=== PATIENT | female | born 1995 | race Caucasian/White ===

== ENCOUNTER 2021-04-08 20:50 | Emergency (ER) | payer BC, SELFPAY ==
[2021-04-08 21:30] VITALS: BP 112/74; PULSE 96; RESP 18; TEMP 36.3; O2SAT 99; BMI 26.6
[2021-04-08 22:39] LABS: HCG Qualitative Urine. Negative (Negative)
[2021-04-08 23:03] LABS: Add Urine Microscopic? YES; Bilirubin Urine Neg (Negative); Blood Urine 3+ (Negative); Glucose Urine UA Norm (Normal); Ketones Urine Negative (Negative); Leukocyte Esterase Urine Negative (Negative); Nitrate Urine Negative (Negative); Protein Urine Neg (Negative); Specific Gravity, Urine 1.015 (1.005-1.030); Urine Appearance Clear (CLEAR); Urine Color Yellow (Yellow); Urobilinogen Urine Norm (Negative); pH Urine 6.5 (5-7)
[2021-04-08 23:07] LABS: Add Urine Culture? Yes; Bacteria Urine TRACE /hpf; RBC Urine 40-50 /hpf (0-2); Squamous Epithelial Cell Urine 0-4 /hpf (0-5); WBC Urine 0-4 /hpf (0-5)
[2021-04-09 00:37] VITALS: BP 126/80; PULSE 80; RESP 18; O2SAT 99
--- NOTE | 2021-04-09 00:39 | W.ED.FEMALGU ---
Documented by User: SAROJ Storey 04/09/21 01:41 HPI - Female Genitourinary General: Chief complaint: Vaginal Bleeding Stated complaint: pressure in vaginal, diarrhea Time Seen by Provider: 04/09/21 00:05 History of Present Illness: HPI Narrative: Patient presents with lower abdominal cramping and pain down and her labial area. Is on her menstrual cycle. And just finishing up. States she never had pain like this before. Said she has never had intercourse and that she is a virgin. Having slight urinary frequency. Patient started using a new type a tampon call a diva cup. She has used this twice. Did use a tampon day but she says she takes her tampons out within 8 to 10 hours and does not have one in presently. Mild bleeding. More complaints of pressure. Denies vaginal discharge. MD elicited complaint: vaginal bleeding and pelvic pain Onset (ago): hour(s) Severity: moderate Quality of pain: cramping Consistency: intermittent Vaginal discharge: none Vaginal bleeding: scant Urinary symptoms: Frequency Exacerbating factors: none Relieving factors: none Associated symptoms: Reports no associated symptoms; Deny abdominal pain, headache(s), nausea or vaginal bleeding Treatment prior to arrival: none Sexual activity: No Patient : No Date of Last Menstrual Period: 04/05/21 Review of Systems Const: Denies: fever(s), chills or body aches Eyes: Denies: change in vision or blurry vision ENMT: Denies: throat pain or nasal congestion Card: Denies: chest pain or dyspnea on exertion Resp: Denies: dyspnea, productive cough or non-productive cough GI: Denies: abdominal pain, nausea or vomiting : Reports: urinary frequency, vaginal bleeding and pelvic pain Musc: Denies: extremity pain Skin/Breast: Denies: rash Neuro: Denies: headache(s) Psych: Denies: anxiety or depression Guille/Lymph: Denies: easy bruising [facility] Female Reproductive History: Date of last menstrual period: 04/05/21 Physical Exam Const: COMMON NORMALS: no acute distress, average body habitus and patient oriented x3 HENMT: COMMON NORMALS: normocephalic HEAD & SCALP: normal to inspection and normocephalic FACE & SINUS: normal facial exam Eye: COMMON NORMALS: conjunctivae normal GENERAL EYE: appearance normal, both eyes and all related structures CONJUNCTIVA: Yes conjunctivae normal Neck/C-Spine: COMMON NORMALS: no JVD Chest: COMMONS NORMALS: normal inspection of the chest Resp: COMMON NORMALS: normal respiratory effort and clear to auscultation bilaterally AUSCULTATION: clear to auscultation bilaterally Cardio: COMMON NORMALS: no JVD, regular rate and regular rhythm RATE: regular rate RHYTHM: regular rhythm GI: COMMON NORMALS: Normal to inspection, nondistended, normoactive bowel sounds present : COMMON NORMALS: Yes no CVA tenderness and Yes normal bimanual exam BLADDER/KIDNEY EXAM: Yes no CVA tenderness EXTERNAL FEMALE EXAM: Yes normal appearance of the urethra SPECULUM EXAM - VAGINA: No laceration, No lesion, No vaginal bleeding, No swelling, No tenderness and No Vaginal discharge present SPECULUM EXAM - CERVIX: Yes Cervical os closed, Yes Cervical bleeding, No Abnormal cervical discharge present and No Cervical tenderness present BIMANUAL EXAM - VAGINA & UTERUS: Yes normal bimanual exam, Yes normal palpation, No cervical motion tenderness and No Cervical tenderness present BIMANUAL EXAM - ADNEXA, OTHER: Yes normal adnexae and No tender OB/EXTERNAL & SPECULUM: No vaginal bleeding Back/Pelvis: COMMON NORMALS: no CVA tenderness Extremity: COMMON NORMALS: normal to inspection and full ROM Neuro: COMMON NORMALS: patient oriented x3 Course Vital Signs: Vital signs: Vital Signs Temperature 97.3 F L 04/08/21 21:30 Pulse Rate 80 04/09/21 00:37 Respiratory Rate 18 04/09/21 00:37 Blood Pressure 126/80 04/09/21 00:37 Pulse Oximetry 99 04/09/21 00:37 MDM - Female MDM Narrative: Medical decision making narrative: Patient presents with a some lower pelvic patient had her first Pap smear approximately 4 weeks ago. Patient is a virgin. Patient has used a diva cup a couple times. This is new for her. This is a device that helps catch menstrual flow and so have not used tampon. Patient currently on her menstrual cycle and about to finish that. Patient is had some diarrhea today also. Laboratory studies were negative pelvic exam revealed mild bleeding from the cervical os no cervical motion tenderness no vaginal laceration no tenderness on vaginal exam except what I would consider normal tenderness for a first time pelvic exam. Patient encouraged to take medication as directed stay away from the diva cup and follow-up with family medical provider. Lab Data: Labs: Lab Results 04/08/21 04/08/21 04/09/21 21:40 21:40 00:49 WBC 8.9 10^3/uL 10^3/ uL (4.0-10.0) RBC 4.36 10^6/uL 10^6 /uL (4.1-5.3) Hgb 13.1 g/dL g/dL (11.5-15.3) Hct 39.9 % % (37.0-47.0) MCV 91.5 fl fl (81-99) MCH 30.0 pg pg (28.0-34.0) MCHC 32.8 g/dL g/dL (30.0-36.0) RDW 13.0 % % (12.1-15.1) Plt Count 195 10^3/cmm 10^3 /cmm (130-400) MPV 11.9 fL H fL (7.4-10.4) Neut % (Auto) 72.5 % % Lymph % (Auto) 19.4 % % [place] % (Auto) 6.8 % % Eos % (Auto) 0.7 % % Baso % (Auto) 0.3 % % Neut # (Auto) 6.45 10^3/uL 10^3 /uL (1.8-7.7) Lymph # (Auto) 1.7 10^3/uL 10^3/ uL (0.8-4.8) [place] # (Auto) 0.6 10^3/uL 10^3/ uL (0.2-0.9) Eos # (Auto) 0.1 10^3/uL 10^3/ uL (0.0-0.8) Baso # (Auto) 0.0 10^3/uL 10^3/ uL (0.0-0.1) Nucleated RBC % (a uto) 0 % % Nucleated RBCs # 0.0 /100WBC /100W BC Sodium Potassium Chloride Carbon Dioxide Anion Gap BUN Creatinine GFR Calculation Glucose Calculated Osmolal ity Calcium Total Bilirubin AST ALT Alkaline Phosphata se Total Protein Albumin Globulin HCG, Qual Negative (Negative) Urine Color Yellow (Yellow) Urine Appearance Clear (CLEAR) Urine pH 6.5 (5-7) Ur Specific Gravit y 1.015 (1.005-1.030) Urine Protein Neg (Negative) Urine Glucose (UA) Norm (Normal) Urine Ketones Negative (Negative) Urine Blood 3+ H (Negative) Urine Nitrate Negative (Negative) Urine Bilirubin Neg (Negative) Urine Urobilinogen Norm mg/dL mg/dL (Negative) Ur Leukocyte Portia ase Negative (Negative) Urine RBC 40-50 /hpf H /hpf (0-2) Urine WBC 0-4 /hpf H /hpf (0-5) Ur Squamous Epith Cells 0-4 /hpf H /hpf (0-5) Amorphous Sediment Not Reportable Urine Bacteria Trace /hpf /hpf (NONE) 04/09/21 00:49 WBC RBC Hgb Hct MCV MCH MCHC RDW Plt Count MPV Neut % (Auto) Lymph % (Auto) [place] % (Auto) Eos % (Auto) Baso % (Auto) Neut # (Auto) Lymph # (Auto) [place] # (Auto) Eos # (Auto) Baso # (Auto) Nucleated RBC % (a uto) Nucleated RBCs # Sodium 138 mmol/L mmol/L (136-145) Potassium 3.8 mmol/L mmol/L (3.5-5.1) Chloride 101 mmol/L mmol/L (98-107) Carbon Dioxide 22 mmol/L mmol/L (22-29) Anion Gap 18.8 (5-19) BUN 7 mg/dL mg/dL (6-20) Creatinine 0.4 mg/dL L mg/dL (0.5-0.9) GFR Calculation 196.1 mL/min H mL /min (90-130) Glucose 97 mg/dL mg/dL (65-115) Calculated Osmolal ity 284 mOsm/kg L mOs m/kg (285-295) Calcium 9.8 mg/dL mg/dL (8.5-10.5) Total Bilirubin 0.3 mg/dL mg/dL (0.15-1.2) AST 14 U/L U/L (0-32) ALT 8 U/L U/L (0-33) Alkaline Phosphata se 56 IU/L IU/L (35-105) Total Protein 8.0 g/dL g/dL (6.6-8.7) Albumin 4.6 g/dL g/dL (3.5-5.2) Globulin 3.4 g/dL g/dL (1.3-4.6) HCG, Qual Urine Color Urine Appearance Urine pH Ur Specific Gravit y Urine Protein Urine Glucose (UA) Urine Ketones Urine Blood Urine Nitrate Urine Bilirubin Urine Urobilinogen Ur Leukocyte Portia ase Urine RBC Urine WBC Ur Squamous Epith Cells Amorphous Sediment Urine Bacteria Discharge Plan Discharge Patient Disposition: Home Clinical Impression: Vaginal cramping Condition: Stable Prescriptions: New Celebrex 100 mg capsule 100 mg PO BID Qty: 20 RF: 0 Discharge Orders: Discharge ED (Routine); Ordered 04/09/21 Ordered By: Obdulio Mandujano Discharge Diet: Usual diet Discharge Activity: Resume usual activity Activity Restrictions/Additional Instructions: Use medicine as needed. Stay away from using the diva cups. Follow-up your family medical provider if no significant improvement or you can return here. Coding Level of Care Code ED Legislative Aide for Chg Fwd Exam Comprehensive Documented by User: Titi Faith DO 04/09/21 01:44 HPI - Female Genitourinary General: Chief complaint: Vaginal Bleeding Stated complaint: pressure in vaginal, diarrhea Time Seen by Provider: 04/09/21 00:05 Course Vital Signs: Vital signs: Vital Signs Temperature 97.3 F L 04/08/21 21:30 Pulse Rate 80 04/09/21 00:37 Respiratory Rate 18 04/09/21 00:37 Blood Pressure 126/80 04/09/21 00:37 Pulse Oximetry 99 04/09/21 00:37 MDM - Female MDM Narrative: Medical decision making narrative: This patient was originally seen by SAROJ Britton. I agree with his history, evaluation, and treatment. Lab Data: Labs: Lab Results 04/08/21 04/08/21 04/09/21 21:40 21:40 00:49 WBC 8.9 10^3/uL 10^3/ uL (4.0-10.0) RBC 4.36 10^6/uL 10^6 /uL (4.1-5.3) Hgb 13.1 g/dL g/dL (11.5-15.3) Hct 39.9 % % (37.0-47.0) MCV 91.5 fl fl (81-99) MCH 30.0 pg pg (28.0-34.0) MCHC 32.8 g/dL g/dL (30.0-36.0) RDW 13.0 % % (12.1-15.1) Plt Count 195 10^3/cmm 10^3 /cmm (130-400) MPV 11.9 fL H fL (7.4-10.4) Neut % (Auto) 72.5 % % Lymph % (Auto) 19.4 % % [place] % (Auto) 6.8 % % Eos % (Auto) 0.7 % % Baso % (Auto) 0.3 % % Neut # (Auto) 6.45 10^3/uL 10^3 /uL (1.8-7.7) Lymph # (Auto) 1.7 10^3/uL 10^3/ uL (0.8-4.8) [place] # (Auto) 0.6 10^3/uL 10^3/ uL (0.2-0.9) Eos # (Auto) 0.1 10^3/uL 10^3/ uL (0.0-0.8) Baso # (Auto) 0.0 10^3/uL 10^3/ uL (0.0-0.1) Nucleated RBC % (a uto) 0 % % Nucleated RBCs # 0.0 /100WBC /100W BC Sodium Potassium Chloride Carbon Dioxide Anion Gap BUN Creatinine GFR Calculation Glucose Calculated Osmolal ity Calcium Total Bilirubin AST ALT Alkaline Phosphata se Total Protein Albumin Globulin HCG, Qual Negative (Negative) Urine Color Yellow (Yellow) Urine Appearance Clear (CLEAR) Urine pH 6.5 (5-7) Ur Specific Gravit y 1.015 (1.005-1.030) Urine Protein Neg (Negative) Urine Glucose (UA) Norm (Normal) Urine Ketones Negative (Negative) Urine Blood 3+ H (Negative) Urine Nitrate Negative (Negative) Urine Bilirubin Neg (Negative) Urine Urobilinogen Norm mg/dL mg/dL (Negative) Ur Leukocyte Portia ase Negative (Negative) Urine RBC 40-50 /hpf H /hpf (0-2) Urine WBC 0-4 /hpf H /hpf (0-5) Ur Squamous Epith Cells 0-4 /hpf H /hpf (0-5) Amorphous Sediment Not Reportable Urine Bacteria Trace /hpf /hpf (NONE) 04/09/21 00:49 WBC RBC Hgb Hct MCV MCH MCHC RDW Plt Count MPV Neut % (Auto) Lymph % (Auto) [place] % (Auto) Eos % (Auto) Baso % (Auto) Neut # (Auto) Lymph # (Auto) [place] # (Auto) Eos # (Auto) Baso # (Auto) Nucleated RBC % (a uto) Nucleated RBCs # Sodium 138 mmol/L mmol/L (136-145) Potassium 3.8 mmol/L mmol/L (3.5-5.1) Chloride 101 mmol/L mmol/L (98-107) Carbon Dioxide 22 mmol/L mmol/L (22-29) Anion Gap 18.8 (5-19) BUN 7 mg/dL mg/dL (6-20) Creatinine 0.4 mg/dL L mg/dL (0.5-0.9) GFR Calculation 196.1 mL/min H mL /min (90-130) Glucose 97 mg/dL mg/dL (65-115) Calculated Osmolal ity 284 mOsm/kg L mOs m/kg (285-295) Calcium 9.8 mg/dL mg/dL (8.5-10.5) Total Bilirubin 0.3 mg/dL mg/dL (0.15-1.2) AST 14 U/L U/L (0-32) ALT 8 U/L U/L (0-33) Alkaline Phosphata se 56 IU/L IU/L (35-105) Total Protein 8.0 g/dL g/dL (6.6-8.7) Albumin 4.6 g/dL g/dL (3.5-5.2) Globulin 3.4 g/dL g/dL (1.3-4.6) HCG, Qual Urine Color Urine Appearance Urine pH Ur Specific Gravit y Urine Protein Urine Glucose (UA) Urine Ketones Urine Blood Urine Nitrate Urine Bilirubin Urine Urobilinogen Ur Leukocyte Portia ase Urine RBC Urine WBC Ur Squamous Epith Cells Amorphous Sediment Urine Bacteria Discharge Plan Discharge Patient Disposition: Home Clinical Impression: Vaginal cramping Condition: Stable Prescriptions: New Celebrex 100 mg capsule 100 mg PO BID Qty: 20 RF: 0 Discharge Orders: Discharge ED (Routine); Ordered 04/09/21 Ordered By: Obdulio Mandujano Discharge Diet: Usual diet Discharge Activity: Resume usual activity Activity Restrictions/Additional Instructions: Use medicine as needed. Stay away from using the diva cups. Follow-up your family medical provider if no significant improvement or you can return here. Coding Level of Care Code ED Legislative Aide for Deshaun Fwd Exam Comprehensive
[2021-04-09 01:03] LABS: Basophils % 0.3 %; Eosinophils # 0.1 10^3/uL (0.0-0.8); Eosinophils % 0.7 %; Hematocrit 39.9 % (37.0-47.0); Hemoglobin 13.1 g/dL (11.5-15.3); Lymphocytes # 1.7 10^3/uL (0.8-4.8); Lymphocytes % 19.4 %; Mean Corpuscular HGB Conc 32.8 g/dL (30.0-36.0); Mean Corpuscular Volume 91.5 fl (81-99); Mean Platelet Volume 11.9 fL (7.4-10.4); Monocytes # 0.6 10^3/uL (0.2-0.9); Monocytes % 6.8 %; Neutrophils # 6.45 10^3/uL (1.8-7.7); Neutrophils % 72.5 %; Nucleated Red Blood Cells % 0 %; Platelet Count 195 10^3/cmm (130-400); Red Blood Count 4.36 10^6/uL (4.1-5.3); White Blood Count 8.9 10^3/uL (4.0-10.0)
[2021-04-09 01:22] LABS: Alanine Aminotransferase 8 U/L (0-33); Albumin Level 4.6 g/dL (3.5-5.2); Alkaline Phosphatase 56 IU/L (35-105); Anion Gap 18.8 (5-19); Aspartate Amino Transferase 14 U/L (0-32); Blood Urea Nitrogen 7 mg/dL (6-20); Calcium 9.8 mg/dL (8.5-10.5); Carbon Dioxide 22 mmol/L (22-29); Chloride 101 mmol/L (98-107); Globulin 3.4 g/dL (1.3-4.6); Glomerular Filtration Rate 196.1 mL/min (90-130); Glucose 97 mg/dL (65-115); Osmolality Calculated 284 mOsm/kg (285-295); Potassium 3.8 mmol/L (3.5-5.1); Sodium 138 mmol/L (136-145); Total Bilirubin 0.3 mg/dL (0.15-1.2)
--- NOTE | 2021-04-09 01:36 | PC.NURSE ---
Assisted provider with pelvic exam
== END 2021-04-09 01:47 | disposition home or self-care (01) ==
PROVIDERS: Emergency Provider Nurse Practitioner Family
DX: R10.2 Pelvic and perineal pain (principal)
CPT/HCPCS: 80053; 81001; 81025; 85025; 87086; 99283